=== PATIENT | female | born 1995 | race Two or more races ===

== ENCOUNTER 2017-05-24 11:00 | Emergency (ER) | payer BC ==
[~2017-05-24] VITALS: Ht 162.6 cm; Wt 72.6 kg
[~2017-05-24 11:00] MED LIST: IBUP800T24 PO
[2017-05-24 11:17] VITALS: BP 142/89
== END 2017-05-24 11:42 | disposition home or self-care (01) ==
LOC: ER 11:02
DX: N39.0 Urinary tract infection, site not specified (principal); Z88.8 Allergy status to other drugs, medicaments and biological substances

== ENCOUNTER 2017-11-05 10:33 | Emergency (ER) | payer BC, MEDICAID ==
[~2017-11-05] VITALS: Ht 162.6 cm; Wt 73.0 kg
[2017-11-05 11:00] VITALS: BP 118/70
[2017-11-05] MEDS ORDERED: ALBUTEROL SULF 2.5 MG/0.5ML(0.5%) NEB SOLN NEB ONE (12:00)
[2017-11-05] MEDS ORDERED: methylPREDNISolone SOD SUCC 125 MG/2 ML VL IM ONE (12:00)
[2017-11-05] MEDS ORDERED: IPRATROPIUM BROM 0.5 MG/2.5ML INH SOL NEB ONE (12:00)
== END 2017-11-05 12:35 | disposition home or self-care (01) ==
LOC: ER 10:33
DX: J45.901 Unspecified asthma with (acute) exacerbation (principal)
CPT/HCPCS: 94640; 96372

== ENCOUNTER 2019-05-08 22:29 | Emergency (ER) | payer MEDICAID ==
[~2019-05-08] VITALS: Ht 162.6 cm; Wt 71.7 kg
[2019-05-08 23:07] LABS: Urine Bacteria FEW /hpf (None Seen); Urine Blood Negative /uL (Negative); Urine Specific Gravity 1.017 (1.001-1.035); Urine WBC 6 /hpf (0 - 5)
[2019-05-08 23:10] VITALS: BP 108/76
[2019-05-08 23:30] LABS: Basophils # (auto) 0 uL; Basophils % (auto) 0.4 % (0.0-2.0); Eosinophils # (auto) 0.2 uL; Eosinophils % (auto) 2.4 % (0.0-7.0); Hematocrit 39.3 % (36.0-46.0); Lymphocytes # (auto) 2.3 uL; Lymphocytes % (auto) 30.8 % (10.0-50.0); Mean Corpuscular Hemoglobin 29.4 pg (28.0-32.0); Mean Corpuscular Hgb Conc. 33.1 g/dL (32.0-36.0); Mean Corpuscular Volume 88.8 fL (80.0-100.0); Monocytes # (auto) 0.5 uL; Monocytes % (auto) 6.4 % (0.0-12.0); Neutrophils # (auto) 4.5 uL; Nucleated Red Blood Cells % 0.1 %; Platelet Count (auto) 242 10^3/uL (140-450); Red Blood Cells 4.43 10^6/uL (4.0-5.20); Red Cell Distribution Width 14.5 % (11.8-14.3); White Blood Cell 7.4 10^3/uL (4.4-10.8)
[2019-05-08 23:41] LABS: Calcium 9.1 mg/dL (8.5-10.1); Potassium 3.4 mmol/L (3.5-5.1)
[2019-05-08 23:47] LABS: BUN/Creatinine Ratio 13.2; Bilirubin, Total 0.2 mg/dL (0.2-1.0); Total Protein 7.9 g/dL (6.4-8.2)
[2019-05-09] MEDS ORDERED: ONDANSETRON HCL 4 MG/2 ML VIAL IV ONE (00:15)
[2019-05-09] MEDS ORDERED: MORPHINE SULFATE 4 MG/ML SYR/VIAL IV ONE (00:15)
[2019-05-09] MEDS ORDERED: SODIUM CHLORIDE 0.9% 1,000 ML IV ONE (00:15)
== END 2019-05-09 02:32 | disposition home or self-care (01) ==
LOC: ER 22:31
DX: K59.00 Constipation, unspecified (principal); N39.0 Urinary tract infection, site not specified; R11.0 Nausea; J45.909 Unspecified asthma, uncomplicated; Z88.6 Allergy status to analgesic agent
CPT/HCPCS: 36415; 74176; 80053; 81001; 81025; 82150; 83690; 85025; 96374; 96375; 99284; J2270; J2405; J7030

== ENCOUNTER 2019-06-06 20:08 | Emergency (ER) | payer MEDICAID ==
[~2019-06-06] VITALS: Ht 162.6 cm; Wt 70.8 kg
[2019-06-06 21:04] VITALS: BP 106/68
[2019-06-06 22:26] LABS: Urine Bacteria NONE SEEN /hpf (None Seen); Urine Blood Negative /uL (Negative); Urine Specific Gravity 1.019 (1.001-1.035); Urine WBC <1 /hpf (0 - 5)
== END 2019-06-07 01:58 | disposition left against medical advice (07) ==
LOC: ER 20:09
DX: R50.9 Fever, unspecified (principal); Z53.21 Procedure and treatment not carried out due to patient leaving prior to being seen by health care provider
CPT/HCPCS: 81001; 81025

== ENCOUNTER 2020-05-08 23:19 | Emergency (ER) | payer MEDICAID ==
[~2020-05-08] VITALS: Ht 154.9 cm; Wt 83.9 kg
[2020-05-09 00:24] LABS: Basophils # (auto) 0 10 ^3/uL (0-0.2); Basophils % (auto) 0.3 % (0.0-2.0); Eosinophils # (auto) 0.1 10 ^3/uL (0-0.8); Eosinophils % (auto) 1.1 % (0.0-7.0); Hematocrit 41.7 % (36.0-46.0); Hemoglobin 13.7 g/dL (12.2-16.2); Lymphocytes # (auto) 1.6 10 ^3/uL (0.4-5.4); Lymphocytes % (auto) 14.4 % (10.0-50.0); Mean Corpuscular Hemoglobin 27.8 pg (28.0-32.0); Mean Corpuscular Hgb Conc. 32.8 g/dL (32.0-36.0); Mean Corpuscular Volume 84.7 fL (80.0-100.0); Monocytes # (auto) 0.5 10 ^3/uL (0-1.3); Monocytes % (auto) 4.9 % (0.0-12.0); Neutrophils # (auto) 8.9 10 ^3/uL (1.6-8.6); Neutrophils % (auto) 79.3 % (37.0-80.0); Platelet Count (auto) 287 10^3/uL (140-450); Red Blood Cells 4.93 10^6/uL (4.0-5.20); Red Cell Distribution Width 16.4 % (11.8-14.3); White Blood Cell 11.2 10^3/uL (4.4-10.8)
[2020-05-09 00:41] LABS: Albumin 3.4 g/dL (3.4-5.0); BUN/Creatinine Ratio 19.8; Calcium 8.7 mg/dL (8.5-10.1); Magnesium 2.3 mg/dL (1.6-2.6); Potassium 3.7 mmol/L (3.5-5.1)
[2020-05-09 00:43] LABS: Bilirubin, Total 0.2 mg/dL (0.2-1.0); Total Protein 7.7 g/dL (6.4-8.2)
[2020-05-09 01:35] LABS: Urine Bacteria FEW /hpf (None Seen); Urine Blood 1+ /uL (Negative); Urine Specific Gravity 1.024 (1.001-1.035); Urine WBC 7 /hpf (0 - 5)
[2020-05-09 01:50] LABS: Alcohol, Urine < 3.0 mg/dL (0-10); Amphetamine Screen, Urine NEGATIVE (NEGATIVE); Barbiturate Scree,Urine NEGATIVE (NEGATIVE); Benzodiazephine Screen, Urine NEGATIVE (NEGATIVE); Cannabinoid Screen, Urine NEGATIVE (NEGATIVE); Cocaine Screen, Urine NEGATIVE (NEGATIVE); Opiate Scree,Urine NEGATIVE (NEGATIVE); Phencyclidine Screen, Urine NEGATIVE (NEGATIVE)
[2020-05-09 01:58] LABS: Partial Thromboplastin Time 29.3 sec (23.64-32.05)
[2020-05-09 02:00] VITALS: BP 111/64
[2020-05-09] MEDS ORDERED: cefTRIAXone SOD 1,000 MG VL IM ONE (02:30)
[2020-05-09] MEDS ORDERED: FERR-7 PO (21:57)
[2020-05-09] MEDS ORDERED: MULTCAP45 PO (21:57)
[2020-05-09] MEDS ORDERED: DOCU100T15 PO (21:57)
[2020-05-10] MEDS ORDERED: PANT40TA2 PO (13:07)
[2020-05-10] MEDS ORDERED: ONDA-144 PO (13:10)
== END 2020-05-09 03:13 | disposition home or self-care (01) ==
LOC: ER 23:20
DX: N39.0 Urinary tract infection, site not specified (principal); J45.909 Unspecified asthma, uncomplicated; Z88.6 Allergy status to analgesic agent
CPT/HCPCS: 36415; 80053; 80307; 81001; 82150; 83605; 83690; 83735; 85025; 85610; 85730; 96372; 99284; J0696

== ENCOUNTER 2020-05-09 14:16 | Inpatient (IN) | payer MEDICAID ==
[~2020-05-09] VITALS: Ht 160 cm; Wt 81.6 kg
[2020-05-09 15:02] LABS: Basophils # (auto) 0 10 ^3/uL (0-0.2); Basophils % (auto) 0.4 % (0.0-2.0); Eosinophils # (auto) 0.1 10 ^3/uL (0-0.8); Hematocrit 40.3 % (36.0-46.0); Hemoglobin 13.1 g/dL (12.2-16.2); Lymphocytes # (auto) 1.3 10 ^3/uL (0.4-5.4); Lymphocytes % (auto) 18.7 % (10.0-50.0); Mean Corpuscular Hemoglobin 27.3 pg (28.0-32.0); Mean Corpuscular Hgb Conc. 32.5 g/dL (32.0-36.0); Monocytes # (auto) 0.5 10 ^3/uL (0-1.3); Monocytes % (auto) 7.3 % (0.0-12.0); Neutrophils # (auto) 5.2 10 ^3/uL (1.6-8.6); Neutrophils % (auto) 72.6 % (37.0-80.0); Platelet Count (auto) 289 10^3/uL (140-450); Red Blood Cells 4.79 10^6/uL (4.0-5.20); Red Cell Distribution Width 16.2 % (11.8-14.3); White Blood Cell 7.2 10^3/uL (4.4-10.8)
[2020-05-09 15:35] LABS: Albumin 3.6 g/dL (3.4-5.0)
[2020-05-09 15:39] LABS: BUN/Creatinine Ratio 15.8; Bilirubin, Total 0.3 mg/dL (0.2-1.0); Total Protein 7.8 g/dL (6.4-8.2)
[2020-05-09 17:31] LABS: INR 1.01 (0.9-1.15); Partial Thromboplastin Time 29.2 sec (23.64-32.05)
[2020-05-09] MEDS ORDERED: SODIUM CHLORIDE 0.9% 1,000 ML IV ONE (19:00)
[2020-05-09] MEDS ORDERED: NITROGLYCERIN 0.4 MG SL TAB SL PRN ×2 (19:00→22:45)
[2020-05-09] MEDS ORDERED: MORPHINE SULF INJ 2 MG/ML SYRINGE 1ML IV PRN ×3 (19:00→22:45)
[2020-05-09 19:25] LABS: Urine Bacteria NONE SEEN /hpf (None Seen); Urine Blood 1+ /uL (Negative); Urine Mucus FEW (None Seen); Urine Specific Gravity 1.016 (1.001-1.035); Urine WBC 3 /hpf (0 - 5)
[2020-05-09 19:44] LABS: Amphetamine Screen, Urine NEGATIVE (NEGATIVE); Barbiturate Scree,Urine NEGATIVE (NEGATIVE); Benzodiazephine Screen, Urine NEGATIVE (NEGATIVE); Cannabinoid Screen, Urine NEGATIVE (NEGATIVE); Cocaine Screen, Urine NEGATIVE (NEGATIVE); Opiate Scree,Urine NEGATIVE (NEGATIVE); Phencyclidine Screen, Urine NEGATIVE (NEGATIVE)
--- NOTE | 2020-05-09 21:30 | NUR ---
Telemetry admit from [facility] admitted to Telemetry unit. Patient oriented to Darline MarksRN primary RN, unit, room, bed, and unit policies regarding patient care and visiting hours. Patient now on continuous telemetry monitoring, tele box #57 and telemetry reading on arrival to unit is NSR. Patient AAOX4, on room air and ambulatory. No S/S of disstress, SOB or pain noted. Weighed by bed scale and encouraged to call if they need something. All questions and concerns addressed, patient verbalized understanding. Bed in lowest locked position, side rails up x2, call light within reach. Will continue to monitor every hour and as needed.
[2020-05-09] MEDS ORDERED: DOCU100T15 PO (21:57)
[2020-05-09] MEDS ORDERED: MULTCAP45 PO (21:57)
[2020-05-09] MEDS ORDERED: FERR-7 PO (21:57)
[2020-05-09 21:59] VITALS: BP 107/62
[2020-05-09] MEDS: CLINDAMYCIN 300MG IV 50 ML IV SCH (22:00)
[2020-05-09] MEDS ORDERED: LORazepam 0.5 MG TAB PO PRN (22:45)
[2020-05-09] MEDS ORDERED: HYDROcodone-ACET 5/325MG TAB PO PRN (22:45)
[2020-05-09] MEDS ORDERED: ONDANSETRON HCL 4 MG/2 ML VIAL IV PRN (22:45)
[2020-05-09] MEDS ORDERED: DOCUSATE SOD 100 MG CAP PO PRN (22:45)
[2020-05-10 00:57] LABS: Cholesterol 158 mg/dL (< 200)
[2020-05-10 01:01] LABS: HDL Cholesterol 54 mg/dL (40-59); LDL Cholesterol 93 mg/dL (< 100); Triglycerides 90 mg/dL (< 150)
[2020-05-10 05:00] VITALS: BP 100/58
[2020-05-10] MEDS: CLINDAMYCIN 300MG IV 50 ML IV SCH ×2 (05:36→14:00)
[2020-05-10 06:15] LABS: Basophils # (auto) 0 10 ^3/uL (0-0.2); Basophils % (auto) 0.4 % (0.0-2.0); Eosinophils # (auto) 0.1 10 ^3/uL (0-0.8); Eosinophils % (auto) 1.5 % (0.0-7.0); Hematocrit 38.7 % (36.0-46.0); Hemoglobin 12.7 g/dL (12.2-16.2); Lymphocytes # (auto) 1.8 10 ^3/uL (0.4-5.4); Mean Corpuscular Hemoglobin 27.7 pg (28.0-32.0); Mean Corpuscular Hgb Conc. 32.9 g/dL (32.0-36.0); Mean Corpuscular Volume 84.2 fL (80.0-100.0); Monocytes # (auto) 0.5 10 ^3/uL (0-1.3); Monocytes % (auto) 6.5 % (0.0-12.0); Neutrophils # (auto) 5.2 10 ^3/uL (1.6-8.6); Neutrophils % (auto) 68.6 % (37.0-80.0); Platelet Count (auto) 253 10^3/uL (140-450); Red Blood Cells 4.59 10^6/uL (4.0-5.20); Red Cell Distribution Width 16.4 % (11.8-14.3); White Blood Cell 7.6 10^3/uL (4.4-10.8)
[2020-05-10 06:26] LABS: INR 1.03 (0.9-1.15); Partial Thromboplastin Time 29.4 sec (23.64-32.05)
[2020-05-10 06:35] LABS: Potassium 3.6 mmol/L (3.5-5.1)
[2020-05-10 06:41] LABS: BUN/Creatinine Ratio 17.6; Calcium 8.6 mg/dL (8.5-10.1)
[2020-05-10 06:42] LABS: Albumin 3.3 g/dL (3.4-5.0); Bilirubin, Total 0.4 mg/dL (0.2-1.0); Magnesium 2.4 mg/dL (1.6-2.6); Phosphorus 4.1 mg/dL (2.5-4.90); Total Protein 7.2 g/dL (6.4-8.2)
[2020-05-10 09:00] VITALS: BP 100/64
[2020-05-10] MEDS ORDERED: cefTRIAXone 1GM/50ML D5W 50 ML IV SCH (09:00)
[2020-05-10] MEDS ORDERED: ENOXAPARIN SOD 40 MG/0.4 ML SYRINGE SC SCH (10:00)
[2020-05-10 13:00] VITALS: BP 114/53
--- NOTE | 2020-05-10 13:01 | NUR ---
PT SEEN BY DR. MOSQUEDA, PT HAS NO COMPLAINTS OF ABDOMINAL PAIN, RECEIVED ORDER TO CANCEL OBGYN CONSULT, COAL BRIQUETTE MACHINE OPERATOR HALIE MADE AWARE.
[2020-05-10] MEDS ORDERED: PANT40TA2 PO (13:07)
[2020-05-10] MEDS ORDERED: ONDA-144 PO (13:10)
[2020-05-10 13:24] VITALS: BP 100/64
--- NOTE | 2020-05-10 14:30 | NUR ---
Discharge instructions given as ordered. Encourage to follow up with [facility] ON 05/29/20 AT 2PM as instructed. All questions and concerns addressed. Patient verbalized understanding. Medication reconciliation form completed and copy given to patient. IV removed with catheter intact, pressure dressing applied. Telemetry unit returned to ICU. Patient taken to vehicle via wheelchair with all personal belongings, accompanied by staff and family member. No distress noted at time of departure.
== END 2020-05-10 14:30 | disposition home or self-care (01) | DRG 561 ==
LOC: ER 14:16 → TELE 14:17 → TELE-WESTW 21:24
PROVIDERS: ADMIT Hospitalist; ATTEND Internal Medicine
DX: O99.63 Diseases of the digestive system complicating the puerperium (principal); E66.01 Morbid (severe) obesity due to excess calories; K35.80 Unspecified acute appendicitis; J45.909 Unspecified asthma, uncomplicated; K29.70 Gastritis, unspecified, without bleeding; O99.215 Obesity complicating the puerperium; O99.53 Diseases of the respiratory system complicating the puerperium; Z82.49 Family history of ischemic heart disease and other diseases of the circulatory system; K82.8 Other specified diseases of gallbladder
CPT/HCPCS: 36415; 76705; 80053; 80061; 80307; 81001; 82550; 83036; 83735; 84100; 84702; 85025; 85610; 85730; 87040; 87086; 96360; G0378; J0696; J3490

== ENCOUNTER 2020-11-12 10:11 | Emergency (ER) | payer MEDICAID ==
[~2020-11-12] VITALS: Ht 162.6 cm; Wt 81.6 kg
[~2020-11-12 10:11] MED LIST changes: +DOCU100T15 PO; +FERR-7 PO; +MULTCAP45 PO; +ONDA-144 PO; +PANT40TA2 PO
[2020-11-12 10:59] VITALS: BP 147/72
[2020-11-12 11:05] LABS: Basophils # (auto) 0 10 ^3/uL (0-0.2); Basophils % (auto) 0.4 % (0.0-2.0); Eosinophils # (auto) 0.1 10 ^3/uL (0-0.8); Eosinophils % (auto) 1.4 % (0.0-7.0); Hematocrit 40.8 % (36.0-46.0); Hemoglobin 13.7 g/dL (12.2-16.2); Lymphocytes # (auto) 1.3 10 ^3/uL (0.4-5.4); Mean Corpuscular Hgb Conc. 33.6 g/dL (32.0-36.0); Mean Corpuscular Volume 83.3 fL (80.0-100.0); Monocytes # (auto) 0.3 10 ^3/uL (0-1.3); Monocytes % (auto) 4.5 % (0.0-12.0); Neutrophils # (auto) 4.6 10 ^3/uL (1.6-8.6); Neutrophils % (auto) 72.7 % (37.0-80.0); Nucleated Red Blood Cells % 0.1 %; Platelet Count (auto) 284 10^3/uL (140-450); Red Cell Distribution Width 14.7 % (11.8-14.3); White Blood Cell 6.4 10^3/uL (4.4-10.8)
[2020-11-12 11:20] LABS: Albumin 3.9 g/dL (3.4-5.0); Calcium 9.5 mg/dL (8.5-10.1); Potassium 4.3 mmol/L (3.5-5.1)
[2020-11-12 11:24] LABS: BUN/Creatinine Ratio 26.2; Bilirubin, Total 0.2 mg/dL (0.2-1.0); Total Protein 8.4 g/dL (6.4-8.2)
[2020-11-12 12:32] LABS: Urine Bacteria NONE SEEN /hpf (None Seen); Urine Blood Negative /uL (Negative); Urine Specific Gravity 1.007 (1.001-1.035); Urine WBC <1 /hpf (0 - 5)
[2020-11-12] MEDS ORDERED: PIPERACILLIN-TAZOB 3.375GM 100 ML IV ONE (14:30)
[2020-11-12 15:30] LABS: INR 0.97 (0.9-1.15)
== END 2020-11-12 20:16 | disposition home or self-care (01) ==
LOC: ER 10:11
DX: K37 Unspecified appendicitis (principal); J45.909 Unspecified asthma, uncomplicated; Z32.02 Encounter for pregnancy test, result negative
CPT/HCPCS: 36415; 74176; 80053; 81001; 81025; 83690; 85025; 85610; 86850; 86900; 86901

== ENCOUNTER 2023-02-16 09:25 | Emergency (ER) | payer MEDICAID ==
[~2023-02-16] VITALS: Ht 162.6 cm; Wt 85.0 kg
[~2023-02-16 09:25] MED LIST changes: +ACET1CAP14 PO; +CYCL-837 PO; -IBUP800T24 PO; +IBUP800T27 PO
[2023-02-16 12:30] VITALS: BP 118/68
[2023-02-16] MEDS ORDERED: KETOROLAC TROMETH 60MG/2ML VIAL IM ONE (12:30)
[2023-02-16 13:22] LABS: Basophils # (auto) 0 10 ^3/uL (0-0.2); Basophils % (auto) 0.3 % (0.0-2.0); Eosinophils # (auto) 0 10 ^3/uL (0-0.8); Eosinophils % (auto) 0.1 % (0.0-7.0); Hematocrit 38.2 % (36.0-46.0); Hemoglobin 12.8 g/dL (12.2-16.2); Lymphocytes # (auto) 0.8 10 ^3/uL (0.4-5.4); Lymphocytes % (auto) 29.3 % (10.0-50.0); Mean Corpuscular Hemoglobin 27.2 pg (28.0-32.0); Mean Corpuscular Hgb Conc. 33.6 g/dL (32.0-36.0); Mean Corpuscular Volume 80.8 fL (80.0-100.0); Monocytes # (auto) 0.2 10 ^3/uL (0-1.3); Monocytes % (auto) 8.9 % (0.0-12.0); Neutrophils # (auto) 1.6 10 ^3/uL (1.6-8.6); Neutrophils % (auto) 61.4 % (37.0-80.0); Nucleated Red Blood Cells % 0.1 %; Red Blood Cells 4.72 10^6/uL (4.0-5.20); Red Cell Distribution Width 14.5 % (11.8-14.3); White Blood Cell 2.7 10^3/uL (4.4-10.8)
[2023-02-16 13:45] LABS: Albumin 3.5 g/dL (3.4-5.0); BUN/Creatinine Ratio 21.9 (10.0-20.0); Calcium 8.5 mg/dL (8.5-10.1); Potassium 3.6 mmol/L (3.5-5.1)
[2023-02-16 13:48] LABS: Bilirubin, Total 0.3 mg/dL (0.2-1.0); Total Protein 7.8 g/dL (6.4-8.2)
[2023-02-16] MEDS ORDERED: IBUP800T26 PO (14:44)
== END 2023-02-16 14:50 | disposition home or self-care (01) ==
LOC: ER 09:25
DX: R59.9 Enlarged lymph nodes, unspecified (principal); Z88.6 Allergy status to analgesic agent; Z79.899 Other long term (current) drug therapy; J45.909 Unspecified asthma, uncomplicated
CPT/HCPCS: 36415; 76881; 80053; 85025; 96372; 99285; J1885

== ENCOUNTER 2023-03-27 19:32 | Emergency (ER) | payer MEDICAID ==
[~2023-03-27] VITALS: Ht 162.6 cm; Wt 85.0 kg
[~2023-03-27 19:32] MED LIST changes: +IBUP800T26 PO
[2023-03-27] MEDS ORDERED: SODIUM CHLORIDE 0.9% 1,000 ML IVB ONE (20:00)
[2023-03-27 20:06] LABS: Basophils # (auto) 0.2 10 ^3/uL (0-0.2); Basophils % (auto) 3.1 % (0.0-2.0); Eosinophils # (auto) 0.1 10 ^3/uL (0-0.8); Eosinophils % (auto) 1.2 % (0.0-7.0); Hematocrit 34.7 % (36.0-46.0); Hemoglobin 11.5 g/dL (12.2-16.2); Lymphocytes % (auto) 13.1 % (10.0-50.0); Mean Corpuscular Hemoglobin 27.4 pg (28.0-32.0); Monocytes # (auto) 0.6 10 ^3/uL (0-1.3); Monocytes % (auto) 7.7 % (0.0-12.0); Neutrophils # (auto) 5.8 10 ^3/uL (1.6-8.6); Neutrophils % (auto) 74.9 % (37.0-80.0); Nucleated Red Blood Cells % 0.2 %; Red Blood Cells 4.18 10^6/uL (4.0-5.20); White Blood Cell 7.8 10^3/uL (4.4-10.8)
[2023-03-27 20:20] LABS: INR 0.98 (0.9-1.15); Partial Thromboplastin Time 29.9 sec (24.6-33.4)
[2023-03-27 20:21] LABS: Urine Bacteria None Seen /hpf (None Seen)
[2023-03-27 20:25] LABS: Albumin 3.5 g/dL (3.4-5.0); Calcium 8.4 mg/dL (8.5-10.1); Potassium 3.4 mmol/L (3.5-5.1)
[2023-03-27 20:36] LABS: BUN/Creatinine Ratio 27.1 (10.0-20.0); Bilirubin, Total 0.2 mg/dL (0.2-1.0); Total Protein 6.7 g/dL (6.4-8.2)
[2023-03-27 20:41] LABS: Alcohol, Urine < 3.0 mg/dL (0-10); Amphetamine Screen, Urine NEGATIVE (NEGATIVE); Barbiturate Scree,Urine NEGATIVE (NEGATIVE); Benzodiazephine Screen, Urine NEGATIVE (NEGATIVE); Cannabinoid Screen, Urine NEGATIVE (NEGATIVE); Cocaine Screen, Urine NEGATIVE (NEGATIVE); Opiate Scree,Urine NEGATIVE (NEGATIVE); Phencyclidine Screen, Urine NEGATIVE (NEGATIVE)
[2023-03-27 21:23] LABS: Urine Blood Negative /uL (Negative); Urine WBC 0-1 /hpf (0 - 5)
[2023-03-27] MEDS ORDERED: SODIUM CHLORIDE 0.9% 1,000 ML IV ONE (22:00)
[2023-03-27 23:02] VITALS: BP 116/70
== END 2023-03-27 23:05 | disposition home or self-care (01) ==
LOC: ER 19:32 → EDBD 19:32 → EDUNIT# 19:32 → ER 23:03
DX: R00.2 Palpitations (principal); J45.909 Unspecified asthma, uncomplicated; R10.2 Pelvic and perineal pain; Z79.899 Other long term (current) drug therapy
CPT/HCPCS: 36415; 71045; 80053; 80307; 81001; 82962; 83735; 84484; 84702; 85025; 85610; 85730; 93005; 96360; 96361; 99285; J7030

== ENCOUNTER 2024-07-30 13:30 | Emergency (ER) | payer MEDICAID ==
[~2024-07-30] VITALS: Ht 162.6 cm; Wt 75.7 kg
[~2024-07-30 13:30] MED LIST changes: +IBUP-1455 PO; +IBUP-1456 PO; -IBUP800T26 PO; -IBUP800T27 PO
[2024-07-30 14:03] LABS: Basophils # (auto) 0 10 ^3/uL (0-0.2); Basophils % (auto) 0.4 % (0.0-2.0); Eosinophils # (auto) 0 10 ^3/uL (0-0.8); Eosinophils % (auto) 0.6 % (0.0-7.0); Hematocrit 40.5 % (36.0-46.0); Hemoglobin 13.6 g/dL (12.2-16.2); Lymphocytes # (auto) 1.6 10 ^3/uL (0.4-5.4); Lymphocytes % (auto) 22.3 % (10.0-50.0); Mean Corpuscular Hemoglobin 29.2 pg (28.0-32.0); Mean Corpuscular Hgb Conc. 33.7 g/dL (32.0-36.0); Mean Corpuscular Volume 86.6 fL (80.0-100.0); Monocytes # (auto) 0.4 10 ^3/uL (0-1.3); Monocytes % (auto) 5.7 % (0.0-12.0); Neutrophils # (auto) 5.2 10 ^3/uL (1.6-8.6); Platelet Count (auto) 270 10^3/uL (140-450); Red Blood Cells 4.67 10^6/uL (4.0-5.20); Red Cell Distribution Width 14.1 % (11.8-14.3); White Blood Cell 7.3 10^3/uL (4.4-10.8)
[2024-07-30 14:15] LABS: Alanine Aminotransferase 10 U/L (7-40); Albumin 4.9 g/dL (3.2-4.8); Alkaline Phosphatase 52 U/L (46-116); Anion Gap 13 (5-15); Aspartate Aminotransferase < 8 U/L (13-40); BUN/Creatinine Ratio 15.2 (10.0-20.0); Blood Urea Nitrogen 10 mg/dL (9-23); Calcium 10.2 mg/dL (8.7-10.4); Carbon Dioxide 19 mmol/L (20-30); Chloride 108 mmol/L (98-107); Glucose 93 mg/dL (74-106); Magnesium 2.2 mg/dL (1.6-2.6); Potassium 3.9 mmol/L (3.5-5.1); Sodium 140 mmol/L (136-145)
[2024-07-30 14:16] LABS: Bilirubin, Total 0.5 mg/dL (0.2-1.0); Total Protein 7.9 g/dL (5.7-8.2)
[2024-07-30 17:41] VITALS: BP 127/71; PULSE 87; RESP 16; TEMP 98.4; O2SAT 98
[2024-07-30] MEDS: SODIUM CHLORIDE 0.9% 1,000 ML IV ONE (17:56)
== END 2024-07-30 18:51 | disposition home or self-care (01) ==
LOC: ER 13:30
DX: R07.9 Chest pain, unspecified (principal); R06.02 Shortness of breath; R42 Dizziness and giddiness; R10.2 Pelvic and perineal pain; Z79.899 Other long term (current) drug therapy; Z88.6 Allergy status to analgesic agent; Z88.8 Allergy status to other drugs, medicaments and biological substances
CPT/HCPCS: 36415; 71046; 80053; 83605; 83735; 84443; 84484; 84702; 85025; 85379; 93005; 96360; 99285; J7030

== ENCOUNTER 2024-09-27 08:53 | Emergency (ER) | payer MEDICAID ==
[~2024-09-27] VITALS: Ht 162.6 cm; Wt 75.9 kg
[2024-09-27] MEDS: SODIUM CHLORIDE 0.9% 1,000 ML IV ONE ×2 (09:31→11:49)
[2024-09-27 09:36] VITALS: BP 114/69; TEMP 97.8
[2024-09-27 09:38] VITALS: PULSE 77; RESP 16; O2SAT 100
--- NOTE | 2024-09-27 10:00 | DVH ---
EXAM: CT HEAD WITHOUT CONTRAST HISTORY: syncope COMPARISON: CT HEAD WITHOUT CONTRAST on DOS: 02/08/23, HEAD WITHOUT CONTRAST on DOS: 11/14/22 TECHNIQUE: Axial images of the head were obtained and reformatted in coronal and sagittal planes. All CT scans at this medical facility are performed using dose modulation techniques as appropriate t o a performed exam including the following: Automated exposure control was utilized; adjustment of th e MA and/or KV according to patient size; and use of iterative reconstruction technique. CT Dose: CTDI volume is 55.72 mGy. Dose-length product is 986.62 mGy*cm FINDINGS: There is no evidence of acute intracranial hemorrhage, mass, mass effect midline shift. There is no h ydrocephalus or extra-axial fluid collection. Frank-white matter differentiation is maintained.. The visualized paranasal sinuses and mastoid air cells are clear. The calvarium is intact. IMPRESSION: 1. No acute intracranial process. HS:Y
--- NOTE | 2024-09-27 10:00 | ED.PDOC ---
History of Present Illness HPI Comments 29 y/o F, with a Hx asthma and previous syncopal episodes, presents with s/p syncope, today. Patient endorses on having a sudden and unprovoked syncopal episode onset, while at work, today. 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 Patient states on seeing dealer development manager for palpitations she has had infrequently in the past. Patient denies having any headache, weakness, dizziness, or other associated symptoms or modifiers at this time. Chief Complaint: Syncope Time Seen by MD: 09:00 Primary Care Provider: JHONY Reviewed Notes: Nurses Notes, Medications, Allergies Allergies: Coded Allergies: Cefazolin (Verified Allergy, Unknown, 02/16/23) Ibuprofen (Verified Allergy, Unknown, 01/18/16) Home Meds Active Scripts Nitrofurantoin Monohydrate Mac (Macrobid) 100 Mg Cap, 100 MG PO BID for 7 Days, #14 CAP Prov:DARREL KING MD 09/27/24 Ibuprofen Micronized (Ibuprofen) 800 Mg Tab, 800 MG PO Q8HP PRN, #30 TAB Prov:LEXX GRACIA PAC 02/16/23 Acetaminophen (Tylenol) 325 Mg Cap, 325 MG PO Q4HPRN PRN, #30 CAP 0 Refills Take 1-2 caps po q4h prn for pain (Do not exceed 3,000mg of acetaminophen in 24 hours) Prov:JAZLYN SHEPHERD STORE MGR 02/08/23 Cyclobenzaprine Hcl (Cyclobenzaprine Hcl) 5 Mg Tab, 1 TAB PO TID PRN, #30 TAB Prov:KIRAN RUIZ STORE MGR 11/15/22 Ondansetron (Zofran) 4 Mg Tab, 1 TAB PO Q6HR PRN, #20 TAB 0 Refills Prov:AARON MOSQUEDA MD 05/10/20 Pantoprazole Sodium Sesquihydr (Protonix) 40 Mg Tab, 40 MG PO DAILY, #30 TAB 0 Refills Prov:AARON MOSQUEDA MD 05/10/20 Reported Medications Multiple Vitamin (Multivitamins) Cap, 1 CAP PO DAILY, #30 CAP 3 Refills 05/09/20 Ferrous Sulfate (Iron) 325 Mg Tab, 325 MG PO, TAB 05/09/20 Docusate Sodium (Docusate Sodium) 100 Mg Tab, 200 MG PO BIDP PRN for FOR CONSTIPATION, MG 05/09/20 Ibuprofen (Ibuprofen) 800 Mg Tab, 1 TAB PO TID PRN for MIGRAINE, #90 TAB 1 Refill 02/12/15 Information Source: Patient Mode of Arrival: ADRY Severity: Moderate Timing: Hours Duration: Minutes Prehospital treatment: None Past Medical History PAST MEDICAL HISTORY: Asthma Past Medical History (Other): previous syncopal episodes Surgical History: Denies all surgeries HYDRAULIC GOVERNOR ASSEMBLER History: No Pertinent HYDRAULIC GOVERNOR ASSEMBLER History Family History Family History: No family hx of Heart wesley, No family hx of HTN Social History Smoker: Non-Smoker Alcohol: Denies ETOH Use Drugs: Denies Drug Use Lives In: Home Constitutional: denies: chills, diaphoresis, fatigue, fever, malaise, sweats, weakness, others EENTM: denies: blurred vision, double vision, ear bleeding, ear discharge, ear drainage, ear pain, ear ringing, eye pain, eye redness, hearing loss, mouth pain, mouth swelling, nasal discharge, nose bleeding, nose congestion, nose pain, photophobia, tearing, throat pain, throat swelling, voice changes, others Respiratory: denies: cough, hemoptysis, orthopnea, SOB at rest, shortness of breath, SOB with excertion, stridor, wheezing, others Cardiovascular: reports: syncope; denies: chest pain, dizzy spells, diaphoresis, Dyspnea on exertion, edema, irregular heart beat, left arm pain, lightheadedness, palpitations, PND, others Gastrointestinal: denies: abdomen distended, abdominal pain, blood streaked bowels, constipated, diarrhea, dysphagia, difficulty swallowing, hematemesis, melena, nausea, poor appetite, poor fluid intake, rectal bleeding, rectal pain, vomiting, others Genitourinary: denies: abnormal vagina bleeding, burning, dyspareunia, dysuria, flank pain, frequency, hematuria, incontinence, pain, , vagina disch arge, urgency, others Neurological: denies: dizziness, fainting, headache, left sided numbness, left sided weakness, numbness, paresthesia, pre-existing deficit, right sided numbness, right sided weakness, seizure, speech problems, tingling, tremors, weakness, others Musculoskeletal: denies: back pain, gout, joint pain, joint swelling, muscle pain, muscle stiffness, neck pain, others Integumetry: denies: bruises, change in color, change in hair/nails, dryness, laceration, lesions, lumps, rash, wounds, others Allergic/Immunocompromised: denies: Difficulty Healing, Frequent Infections, Hives, Itching, others Hematologic/Lymphatic: denies: anemia, blood clots, easy bleeding, easy bruising, swollen glands, others Endocrine: denies: excessive hunger, excessive sweating, excessive thirst, excessive urination, flushing, intolerance to cold, intolerance to heat, unexplained weight gain, unexplained weight loss, others Psychiatric: denies: anxiety, bipolar disorder, depression, hopeless, panic disorder, schizophrenia, sleepless, suicidal, others All Other Systems: Reviewed and Negative Physical Exam General Appearance: Moderate Distress HEENT: Normal ENT Inspection, Pharynx Normal, TMs Normal Neck: Full Range of Motion, Non-Tender, Normal, Normal Inspection Respiratory: Chest Non-Tender, Lungs Clear, No Accessory Muscle Use, No Respiratory Distress, Normal Breath Sounds Cardiovascular: No Edema, No JVD, No Murmur, No Gallop, Normal Peripheral Pulses, Regular Rate/Rhythm Breast Exam: Deferred Gastrointestinal: No Organomegaly, Non Tender, No Pulsatile Mass, Normal Bowel Sounds, Soft Genitalia: Deferred Pelvic: Deferred Rectal: Deferred Extremities: No calf tenderness, Normal capillary refill, Normal inspection, Normal range of motion, Non-tender, No pedal edema Musculoskeletal : Apperance: Normal Neurologic: Alert, process improvement manager II-XII nml as Tested, No Motor Deficits, Normal Affect, Normal Mood, No Sensory Deficits Cerebellar Function: NOT DONE Reflexes: NOT DONE Skin: Dry, Normal Color, Warm Peripheral Pulses: 3+ Radial (R), 3+ Radial (L) Lymphatic: No Adenopathy Was a procedure done? Was a procedure done?: No Differential Dx Considerations may include: hypotension, electrolyte imbalance, dehydration, vasovagal response X-Ray, Labs, Meds, VS Vital Signs Date Time Temp Pulse Resp B/P (MAP) Pulse Ox O2 Delivery O2 Flow Rate FiO2 09/27/24 09:38 77 16 100 Room Air* 0 21 09/27/24 09:36 97.8 77 16 114/69 (84) 100 97.8 09/27/24 09:36 77 16 100 Room Air 09/27/24 09:00 98.4 82 16 104/69 (81) 100 Lab Test 09/27/24 10:29 09/27/24 09:29 09/27/24 09:03 Range/Units Urine Color Colorless Yellow Urine Clarity Turbid H Clear Urine pH 5.5 5.0-9.0 Urine Specific [place] 1.012 1.001-1.035 Urine Protein Negative Negative Urine Ketones Negative Negative Urine Blood Negative Negative /uL Urine Nitrite Negative Negative Urine Bilirubin Negative Negative Urine Urobilinogen Normal Negative mg/dL Urine Leukocyte Esterase 3+ Negative /uL Urine RBC 6 0 - 4 /hpf Urine WBC 16 0 - 5 /hpf Urine Squamous Epithelial Cells Few <5 /hpf Urine Bacteria Mod H None Seen /hpf Urine Mucus Few None Seen Urine Glucose Normal Normal mg/dL White Blood Count 5.7 4.4-10.8 10^3/uL Red Blood Count 4.57 4.0-5.20 10^6/uL Hemoglobin 13.3 12.2-16.2 g/dL Hematocrit 39.4 36.0-46.0 % Mean Corpuscular Volume 86.2 80.0-100.0 fL Mean Corpuscular Hemoglobin 29.1 28.0-32.0 pg Mean Corpuscular Hemoglobin Concent 33.7 32.0-36.0 g/dL Red Cell Distribution Width 14.1 11.8-14.3 % Platelet Count 210 140-450 10^3/uL Mean Platelet Volume 8.1 6.9-10.8 fL Neutrophils (%) (Auto) 69.0 37.0-80.0 % Lymphocytes (%) (Auto) 23.9 10.0-50.0 % Monocytes (%) (Auto) 5.9 0.0-12.0 % Eosinophils (%) (Auto) 0.9 0.0-7.0 % Basophils (%) (Auto) 0.3 0.0-2.0 % Neutrophils # (Auto) 3.9 1.6-8.6 10 ^3/uL Lymphocytes # (Auto) 1.3 0.4-5.4 10 ^3/uL Monocytes # (Auto) 0.3 0-1.3 10 ^3/uL Eosinophils # (Auto) 0 0-0.8 10 ^3/uL Basophils # (Auto) 0 0-0.2 10 ^3/uL Nucleated Red Blood Cells 0.0 % Sodium Level 140 136-145 mmol/L Potassium Level 3.7 3.5-5.1 mmol/L Chloride Level 109 H 98-107 mmol/L Carbon Dioxide Level 26 20-31 mmol/L Anion Gap 5 5-15 Blood Urea Nitrogen 12 9-23 mg/dL Creatinine 0.60 0.550-1.02 mg/dL Glomerular Filtration Rate Calc 125 >90 mL/min BUN/Creatinine Ratio 20.0 10.0-20.0 Serum Glucose 80 74-106 mg/dL Calcium Level 9.5 8.7-10.4 mg/dL POC Glucose 79 70-106 mg/dl Current Medications Medications (Trade) Dose Ordered Sig/Tobias Route Start Time Stop Time Status Last Admin Sodium Chloride 1,000 ml @ 1,000 mls/hr Q1H ONCE IV 09/27/24 09:15 09/27/24 10:14 DC 09/27/24 09:31 [place] [address] Ph: [phone] DIAGNOSTIC IMAGING Diagnostic Imaging Report : [id number] Signed PATIENT: LIBIA PAN ACCT: [id number] UNIT: [id number] : 1995 LOC: ER ROOM / BED: / AGE / SEX: 29 / F ADM STATUS: REG ER SERVICE 0 ORDERING PHYSICIAN: DARREL KING MD PROCEDURE(s): HWOCT - HEAD WITHOUT CONTRAST REASON: syncope ORDER NUMBER(s): [id number], ACCESSION NUMBER(s): [id number] EXAM: CT HEAD WITHOUT CONTRAST HISTORY: syncope COMPARISON: CT HEAD WITHOUT CONTRAST on DOS: 02/08/23, HEAD WITHOUT CONTRAST on DOS: 11/14/22 TECHNIQUE: Axial images of the head were obtained and reformatted in coronal and sagittal planes. All CT scans at this medical facility are performed using dose modulation techn iques as appropriate to a performed exam including the following: Automated exposure control was utilized; adjustment of the MA and/or KV according to patient size; and use of iterative reconstruction technique. CT Dose: CTDI volume is 55.72 mGy. Dose-length product is 986.62 mGy*cm FINDINGS: There is no evidence of acute intracranial hemorrhage, mass, mass effect midline shift. There is no hydrocephalus or extra-axial fluid collection. Frank-white matter differentiation is maintained.. The visualized paranasal sinuses and mastoid air cells are clear. The calvarium is intact. IMPRESSION: 1. No acute intracranial process. HS:Y ATED BY: HADLEY KUMAR MD DICTATED DATE/TIME: 09/27/24957 SIGNED BY: HADLEY KUMAR MD SIGNED DATE/TIME: 09/27/24957 CC: Patient alert. Possible syncope. Vitals stable. Answering all questions. Good skin color. Not in distress. CT of the head reviewed within normal limits. WBC within normal limits. Hemoglobin within normal limits. Urinalysis shows UTI. Was given prescription of Macrobid antibiotic. Explained to the patient. Was told to follow up with her primary care physician. Was told to come back if there is any problem. Time of 1ST Reevaluation: 09:30 Reevaluation 1ST: Improved Time of 2ND Reevaluation: 12:07 Reevaluation 2ND: Improved Patient Education/Counseling: Diagnosis, Treatment Family Education/Counseling: No Family Present Departure 1 Departure Time of Disposition: 12:09 Impression: Primary Impression: Near syncope Additional Impression: UTI (urinary tract infection) Qualified Codes: N30.00 - Acute cystitis without hematuria Disposition: 01 HOME / SELF CARE / HOMELESS Condition: Good e-Prescriptions Nitrofurantoin Monohydrate Mac (Macrobid) 100 Mg Cap 100 MG PO BID for 7 Days, #14 CAP Prov: DARREL KING MD 09/27/24 Discharged With: Self Critical Care Note Critical Care Time?: No Stability Stability form required: No Heart Score Heart Score: Heart Score Response (Comments) Value History Moderate Suspicious 1 EKG Normal 0 Age <45 0 Risk Factors No known risk factors 0 Troponin Normal limit 0 Total 1 I personally scribed for DARREL KING MD ([email or web address]) on 09/27/24 at 10:00. Electronically submitted by Jackson Gaston ([email or web address]). I personally scribed for DARREL KING MD ([email or web address]) on 09/27/24 at 11:57. Electronically submitted by Jackson Gaston [email or web address]). DARREL KING MD Sep 27, 2024 10:00
[2024-09-27 10:19] LABS: Chloride 109 mmol/L (98-107); Potassium 3.7 mmol/L (3.5-5.1); Sodium 140 mmol/L (136-145)
[2024-09-27 10:20] LABS: Basophils # (auto) 0 10 ^3/uL (0-0.2); Basophils % (auto) 0.3 % (0.0-2.0); Eosinophils # (auto) 0 10 ^3/uL (0-0.8); Eosinophils % (auto) 0.9 % (0.0-7.0); Hematocrit 39.4 % (36.0-46.0); Hemoglobin 13.3 g/dL (12.2-16.2); Lymphocytes # (auto) 1.3 10 ^3/uL (0.4-5.4); Lymphocytes % (auto) 23.9 % (10.0-50.0); Mean Corpuscular Hemoglobin 29.1 pg (28.0-32.0); Mean Corpuscular Hgb Conc. 33.7 g/dL (32.0-36.0); Mean Corpuscular Volume 86.2 fL (80.0-100.0); Monocytes # (auto) 0.3 10 ^3/uL (0-1.3); Monocytes % (auto) 5.9 % (0.0-12.0); Neutrophils # (auto) 3.9 10 ^3/uL (1.6-8.6); Platelet Count (auto) 210 10^3/uL (140-450); Red Blood Cells 4.57 10^6/uL (4.0-5.20); Red Cell Distribution Width 14.1 % (11.8-14.3); White Blood Cell 5.7 10^3/uL (4.4-10.8)
[2024-09-27 10:21] LABS: Anion Gap 5 (5-15); Calcium 9.5 mg/dL (8.7-10.4); Carbon Dioxide 26 mmol/L (20-31)
[2024-09-27 10:26] LABS: Blood Urea Nitrogen 12 mg/dL (9-23); Glucose 80 mg/dL (74-106)
[2024-09-27 11:43] LABS: Urine Bacteria MOD /hpf (None Seen); Urine Blood Negative /uL (Negative); Urine Clarity Turbid (Clear); Urine Color Colorless (Yellow); Urine Mucus FEW (None Seen); Urine Protein, UAD Negative (Negative); Urine Specific Gravity 1.012 (1.001-1.035); Urine Urobilinogen Normal (Negative); Urine WBC 16 /hpf (0 - 5); Urine pH 5.5 (5.0-9.0)
[2024-09-27] MEDS ORDERED: NITR-87 PO (12:09)
--- NOTE | 2024-09-27 13:42 | DVHSR ---
APPROVED REPORT EXAM: Two-dimensional and M-mode echocardiogram with Doppler and color Doppler. Blood Pressure: 104/64 mmHg INDICATION Syncope RISK FACTORS Height: 64, Weight: 167 DIMENSIONS LVDd4.7 (3.8-5.7cm)LA (2D)3.7 (1.9-4.0cm)Aortic Root3.0 (2.0-3.7cm) LVDs3.1 (2.5-4.0cm)LA (MM) (1.9-4.0cm)Aortic Cusp Exc1.8 (1.5-2.0cm) EF (%) 65.0 (55-70%)Rt. Atrium3.8 (1.9-4.0cm)Asc. Aorta cm IVSd0.9 (0.7-1.1cm)RV (D) (1.8-2.4cm) PWd1.1 (0.7-1.1cm) Mitral Valve MitralMitral Stenosis E wave0.58m/sMV Mean GR.mmHg A wave0.51m/sMV Peak GR.mmHg E/A ratio1.12D MVAcm2 DECEL [id number] 1/2 Timems Aortic Valve Aortic ValveAortic Stenosis V10.98m/Mahnaz Mean GR.4mmHg V21.40m/Mahnaz Peak GR.8mmHg LVOT Diameter2.0 (1.8-2.4cm)Doppler AVA2.20cm2 Pulmonic Valve V20.94m/s Conclusion Normal left ventricular size and dimension. Normal left ventricular systolic function estimated ejec tion fraction 55%. There is a grade 1 diastolic dysfunction. Normal right ventricular size and dimension. Normal right ventricular systolic function. Normal biatrial size and dimension. Normal aortic valve structure and function. Normal mitral valve structure and function. Normal tricuspid valve structure and function. The pulmonary valve is grossly normal. No pericardial effusion.
== END 2024-09-27 12:50 | disposition home or self-care (01) ==
LOC: ER 08:53
DX: N39.0 Urinary tract infection, site not specified (principal); R55 Syncope and collapse; J45.909 Unspecified asthma, uncomplicated; Z79.899 Other long term (current) drug therapy; Z88.1 Allergy status to other antibiotic agents; Z88.6 Allergy status to analgesic agent
CPT/HCPCS: 36415; 70450; 80048; 81001; 82962; 85025; 93306; 96360; 99284; J7030